=== PATIENT | male | born 1960 | race Two or more races ===

== ENCOUNTER 2021-04-18 08:38 | Inpatient (IN) | payer MEDICAID, OTHER ==
[~2021-04-18] VITALS: Ht 177.8 cm; Wt 74.7 kg
[~2021-04-18 08:38] MED LIST: LEVO100 PO; OLAN5TAB52 PO
[2021-04-18 09:39] LABS: COVID AG,FIA SOURCE NASOPHARYNGEAL
[2021-04-18 09:41] LABS: BASOPHILS % (AUTO) 0.8 % (0.0-2.0); HEMATOCRIT 34.4 % (41-53); HEMOGLOBIN 11.3 g/dL (13.5-17.5); LYMPHOCYTES # (AUTO) 0.8 K/uL (1.0-4.8); LYMPHOCYTES % (AUTO) 16.2 % (22.0-44.0); MEAN CORPUSCULAR HEMOGLOBIN 30.1 pg (26.0-34.0); MEAN CORPUSCULAR HGB CONC 32.8 G/dL (31.0-37.0); MEAN CORPUSCULAR VOLUME 92 fL (80-100); MONOCYTES # (AUTO) 0.3 K/uL (0.1-1.0); MONOCYTES % (AUTO) 6.8 % (2.0-9.0); NEUTROPHILS # (AUTO) 3.4 K/uL (1.8-7.7); NEUTROPHILS % (AUTO) 73.2 % (40.0-70.0); PLATELET COUNT (AUTO) 100 K/uL (150-450); RED BLOOD CELL COUNT(AUTO) 3.75 MIL/uL (4.50-5.90); RED CELL DISTRIBUTION WIDTH 15.4 % (11.5-14.5)
[2021-04-18 09:49] LABS: ANION GAP 11 mmol/L (8-16); CALCIUM, TOTAL 9.1 mg/dL (8.8-10.5); CARBON DIOXIDE 27 mmol/L (22-29); CHLORIDE 102 mmol/L (98-107); CREATININE 7.22 mg/dL (0.60-1.30); GLOMERULAR FILTR. RATE CALC 8 mL/min (>60); GLUCOSE,RANDOM 82 mg/dL (70-110); POTASSIUM 4.5 mmol/L (3.5-5.1); SODIUM SERUM 140 mmol/L (136-145); UREA NITROGEN, BLOOD 32 mg/dL (7-18)
[2021-04-18 09:54] LABS: ALANINE AMINOTRANSFERASE 38 U/L (12-78); ALBUMIN 4.2 g/dL (3.4-5.0); ALKALINE PHOSPHATASE 87 U/L (46-116); ASPARTATE AMINOTRANSFERASE 24 U/L (15-37); BILIRUBIN,TOTAL 0.6 mg/dL (0.1-1.0); TOTAL PROTEIN, SERUM 7.3 g/dL (6.4-8.2)
[2021-04-18] MEDS ORDERED: LORazepam 2 MG TABLET PO PRN (12:15)
[2021-04-18] MEDS ORDERED: HALOPERIDOL 5 MG TABLET PO PRN (12:15)
[2021-04-18] MEDS ORDERED: ZOLPIDEM TARTRATE 10 MG TABLET PO PRN (12:15)
[2021-04-18 19:40] VITALS: BP 98/74
[2021-04-19] MEDS ORDERED: LEVOTHYROXINE SODIUM 100 MCG TABLET PO SCH (07:00)
[2021-04-19] MEDS ORDERED: MAGNESIUM HYDROXIDE SUSPENSION 30 ML UDCUP PO PRN (07:45)
[2021-04-19] MEDS ORDERED: ALBUTEROL SULFATE HFA 90 MCG/PUFF 8 GM INHALER IH PRN (07:45)
[2021-04-19] MEDS ORDERED: PETROLATUM,WHITE 28 GM JELLY TP PRN (07:45)
[2021-04-19] MEDS ORDERED: MAG HYDROX/AL HYDROX/SIMETH ES 30 ML SUSPENSION UDCUP PO PRN (07:45)
[2021-04-19] MEDS ORDERED: ONDANSETRON HCL 4 MG TABLET PO PRN (07:45)
[2021-04-19] MEDS ORDERED: ACETAMINOPHEN 325 MG TABLET PO PRN (07:45)
[2021-04-19] MEDS ORDERED: GuaiFENesin/D-METHORPHAN [SUGAR-FREE] 200-20MG/10 ML SYRUP UDCUP PO PRN (07:45)
[2021-04-19] MEDS ORDERED: NICOTINE 14 MG/24 HOUR PATCH TD PRN (07:45)
[2021-04-19] MEDS ORDERED: DOCUSATE SODIUM 100 MG CAPSULE PO PRN (07:45)
[2021-04-19] MEDS ORDERED: CloNIDine HCL 0.1 MG TABLET PO PRN (07:45)
[2021-04-19] MEDS ORDERED: LOPERAMIDE HCL 2 MG CAPSULE PO PRN (07:45)
[2021-04-19 08:00] VITALS: BP 125/93
[2021-04-19] MEDS: OLANZapine 5 MG TABLET PO SCH ×2 (09:45→16:28)
[2021-04-19 12:26] LABS: CHOL/HDL RATIO 2.1 (4.2-7.3)
[2021-04-19 16:12] VITALS: BP 163/83
[2021-04-20] MEDS: LEVOTHYROXINE SODIUM 100 MCG TABLET PO SCH ×2 (06:43→08:34)
[2021-04-20] MEDS ORDERED: EPOETIN ALFA 10,000 UNITS/ML VIAL SQ ONE (07:30)
[2021-04-20 08:00] VITALS: BP 166/93
[2021-04-20] MEDS: OLANZapine 5 MG TABLET PO SCH ×2 (08:33→16:22)
[2021-04-20] MEDS ORDERED: DiphenhydrAMINE HCL 50 MG/ML VIAL IVP ONE (12:00)
[2021-04-20] MEDS ORDERED: HEPARIN SODIUM,PORCINE 1,000 UNITS/ML VIAL IVP ONE (12:00)
[2021-04-20 16:04] VITALS: BP 157/98
[2021-04-21] MEDS: OLANZapine 5 MG TABLET PO SCH ×2 (09:00→16:36)
[2021-04-22] MEDS: LEVOTHYROXINE SODIUM 100 MCG TABLET PO SCH (07:00)
[2021-04-22] MEDS: OLANZapine 5 MG TABLET PO SCH ×2 (09:00→17:00)
[2021-04-22] MEDS: IBUPROFEN 400 MG TABLET PO PRN (14:10)
[2021-04-22 16:17] VITALS: BP 150/93
[2021-04-23] MEDS: LEVOTHYROXINE SODIUM 100 MCG TABLET PO SCH (06:55)
[2021-04-23 08:00] VITALS: BP 167/88
[2021-04-23] MEDS: OLANZapine 5 MG TABLET PO SCH ×2 (09:00→16:14)
[2021-04-23 10:30] LABS: COVID AG,FIA SOURCE NASOPHARYNGEAL
[2021-04-23 16:10] VITALS: BP 165/90
[2021-04-23 16:12] VITALS: BP 165/90
[2021-04-24 01:46] VITALS: BP 146/78
[2021-04-24] MEDS: IBUPROFEN 400 MG TABLET PO PRN (01:46)
[2021-04-24] MEDS: LEVOTHYROXINE SODIUM 100 MCG TABLET PO SCH ×2 (06:16→08:41)
[2021-04-24] MEDS: OLANZapine 5 MG TABLET PO SCH (08:41)
== END 2021-04-24 15:30 | disposition left against medical advice (07) | DRG 750 ==
LOC: EMS 08:38 → 3EC 17:33
PROVIDERS: ADMIT Psychiatry & Neurology Child & Adolescent Psychiatry; ATTEND Psychiatry & Neurology Child & Adolescent Psychiatry
DX: F20.0 Paranoid schizophrenia (principal); R64 Cachexia; E46 Unspecified protein-calorie malnutrition; R45.851 Suicidal ideations; E83.51 Hypocalcemia; I12.0 Hypertensive chronic kidney disease with stage 5 chronic kidney disease or end stage renal disease; E87.5 Hyperkalemia; N18.6 End stage renal disease; F41.9 Anxiety disorder, unspecified; R62.7 Adult failure to thrive; D63.1 Anemia in chronic kidney disease; E03.9 Hypothyroidism, unspecified; E88.09 Other disorders of plasma-protein metabolism, not elsewhere classified; F17.210 Nicotine dependence, cigarettes, uncomplicated; N25.81 Secondary hyperparathyroidism of renal origin; Z99.2 Dependence on renal dialysis; Z91.15 Patient's noncompliance with renal dialysis; Z68.23 Body mass index [BMI] 23.0-23.9, adult; Z91.19 Patient's noncompliance with other medical treatment and regimen; Z82.49 Family history of ischemic heart disease and other diseases of the circulatory system; Z20.822 Contact with and (suspected) exposure to COVID-19
CPT/HCPCS: 80053; 80061; 85025; 87081; 87340; 99285; G0480; J0885; J1200; J1644